=== PATIENT | male | born 1960 | race Caucasian/White ===

== ENCOUNTER → 2017-01-13 | Outpatient (CLI) | payer OTHER ==
[~2017-01-13] MED LIST: AMARYL1 MG PO; ASPIRIN325 MG PO; ATORVASTATIN CA40 MG PO; INVOKANA300 MG PO; LANTUS SOL100 UNITS/ SC; LISINOPRIL10 MG PO; METFORMIN HCL500 MG PO; NIASPAN500 MG PO; PERCOCET1 TA4 PO; ZOFRAN4 MG PO
--- NOTE | 2017-01-13 14:25 | DIAGNOSTIC IMAGING REPORT ---
PROCEDURE: MR LOWER EXT JOINT WO CONT-LT INDICATION: LT KNEE JOINT EFFUSION TECHNIQUE: T1 and STIR sagittal, axial, coronal and coronal-oblique images. COMPARISON: Right knee x-ray 05/06/2016. FINDINGS: Mild spur formation of all three joint compartments. Normal collateral and cruciate ligaments. Medial meniscus posterior horn tear with mild chondromalacia patella and minor underlying bone marrow edema of the medial femoral condyle and medial tibial plateau. Grade 1 degeneration of the lateral meniscus posterior horn. Normal quadriceps tendon. Tendinosis of the patellar tendon proximally. Severe thinning of the patellar cartilage with minor subchondral changes. Moderate effusion. IMPRESSION: 1. Medial meniscus posterior horn tear with mild chondromalacia and minor underlying bone marrow edema 2. Severe chondromalacia patella 3. Patellar tendinosis 4. Moderate effusion
== END ==
LOC: MRI SRH 11:52
DX: S83.242A Other tear of medial meniscus, current injury, left knee, initial encounter (principal); M22.42 Chondromalacia patellae, left knee; M76.52 Patellar tendinitis, left knee; M25.462 Effusion, left knee